=== PATIENT | male | born 1960 | race African-American/Black ===

== ENCOUNTER 2017-01-30 04:34 | Emergency (ER) | payer OTHER ==
[~2017-01-30] VITALS: Ht 190.5 cm; Wt 136.4 kg
[~2017-01-30 04:34] MED LIST: ACYC400T PO; ALPR2TAB7 PO; BENZ100C68 PO; GABA-533 PO; HYDR-4065 PO; HYDR25TA PO; IPRA4AER IH; ISOS60TA4 PO; LEVO500T89 PO; LORA10TA7 PO; METO25TA6 PO; OLOP5DRO15 OP; OMEP20CA4 PO; POTA595T PO; PRED50TA2 PO; PYRI500T3 PO; VALS320T2 PO
[2017-01-30] MEDS ORDERED: ISOS120T10 PO (04:52)
[2017-01-30] MEDS ORDERED: BENA20 PO (04:52)
[2017-01-30] MEDS ORDERED: LORA10TA7 PO (04:52)
[2017-01-30] MEDS ORDERED: HYDR25TA PO (04:52)
[2017-01-30] MEDS ORDERED: AMLO-511 PO (04:52)
[2017-01-30] MEDS ORDERED: MECL-111 PO (04:52)
[2017-01-30] MEDS ORDERED: BACL10TA PO (04:52)
[2017-01-30 06:08] VITALS: BP 150/100
[2017-01-31] MEDS ORDERED: SODI44SP18 NASAL (01:19)
[2017-01-31] MEDS ORDERED: DOXY100C PO (01:19)
== END 2017-01-30 06:46 | disposition home or self-care (01) ==
LOC: EMS 04:35
DX: J32.9 Chronic sinusitis, unspecified (principal); I10 Essential (primary) hypertension; Z88.8 Allergy status to other drugs, medicaments and biological substances
CPT/HCPCS: 99283

== ENCOUNTER 2017-01-31 01:00 | Emergency (ER) | payer OTHER ==
[~2017-01-31] VITALS: Ht 190.5 cm; Wt 150.0 kg
[~2017-01-31 01:00] MED LIST changes: +AMLO-511 PO; +BACL10TA PO; +BENA20 PO; -BENZ100C68 PO; +ISOS120T10 PO; -ISOS60TA4 PO; -LEVO500T89 PO; +MECL-111 PO; -METO25TA6 PO; -OLOP5DRO15 OP; -OMEP20CA4 PO; -POTA595T PO; -PRED50TA2 PO; -PYRI500T3 PO; -VALS320T2 PO
[2017-01-31] MEDS ORDERED: DOXY100C PO (01:19)
[2017-01-31] MEDS ORDERED: SODI44SP18 NASAL (01:19)
[2017-01-31 03:43] VITALS: BP 150/85
== END 2017-01-31 03:43 | disposition home or self-care (01) ==
LOC: EMS 01:01
DX: H65.91 Unspecified nonsuppurative otitis media, right ear (principal); H93.11 Tinnitus, right ear; R42 Dizziness and giddiness; I10 Essential (primary) hypertension; Z88.8 Allergy status to other drugs, medicaments and biological substances
CPT/HCPCS: 99283

== ENCOUNTER 2017-08-08 12:16 | Inpatient (IN) | payer OTHER ==
[~2017-08-08] VITALS: Ht 190.5 cm; Wt 166.0 kg
[~2017-08-08 12:16] MED LIST changes: +DOXY100C PO; +SODI44SP18 NASAL
[2017-08-08] MEDS ORDERED: ONDANSETRON HCL 4 MG/2 ML VIAL IVP ONE (13:00)
[2017-08-08] MEDS ORDERED: MORPHINE SULFATE 4 MG/ML SYRINGE IVP ONE (13:00)
[2017-08-08] MEDS ORDERED: SODIUM CHLORIDE 0.9% 1,000 ML IV ONE (13:00)
[2017-08-08] MEDS ORDERED: PB/HYOSCY/ATR/SCOP/LIDO/MAALOX 55 ML BOTTLE PO ONE (13:00)
[2017-08-08 13:08] LABS: BASOPHILS % (AUTO) 0.7 % (0.0-2.0); EOSINOPHILS % (AUTO) 0.3 % (1.0-6.0); HEMATOCRIT 42.4 % (41-53); HEMOGLOBIN 14.5 g/dL (13.5-17.5); LYMPHOCYTES # (AUTO) 1.2 K/uL (1.0-4.8); MEAN CORPUSCULAR HEMOGLOBIN 29.7 pg (26.0-34.0); MEAN CORPUSCULAR HGB CONC 34.3 G/dL (31.0-37.0); MEAN CORPUSCULAR VOLUME 87 fL (80-100); MONOCYTES # (AUTO) 0.4 K/uL (0.1-1.0); MONOCYTES % (AUTO) 3.3 % (2.0-9.0); NEUTROPHILS # (AUTO) 11.4 K/uL (1.8-7.7); PLATELET COUNT (AUTO) 229 K/uL (150-450); RED BLOOD CELL COUNT(AUTO) 4.88 MIL/uL (4.50-5.90); RED CELL DISTRIBUTION WIDTH 14.9 % (11.5-14.5)
[2017-08-08 13:09] LABS: NEUTROPHILS % (AUTO) 86.7 % (40.0-70.0)
[2017-08-08 13:16] LABS: ANION GAP 8 mmol/L (8-16); CALCIUM, TOTAL 9.3 mg/dL (8.8-10.5); CARBON DIOXIDE 28 mmol/L (22-29); CHLORIDE 100 mmol/L (98-107); CREATININE 1.33 mg/dL (0.60-1.30); GLOMERULAR FILTR. RATE CALC > 60 mL/min (>60); GLUCOSE,RANDOM 103 mg/dL (70-110); POTASSIUM 3.4 mmol/L (3.5-5.1); SODIUM SERUM 136 mmol/L (136-145); UREA NITROGEN, BLOOD 15 mg/dL (7-18)
[2017-08-08 13:22] LABS: ALANINE AMINOTRANSFERASE 40 U/L (12-78); ALBUMIN 3.7 g/dL (3.4-5.0); ALKALINE PHOSPHATASE 86 U/L (46-116); ASPARTATE AMINOTRANSFERASE 27 U/L (15-37); BILIRUBIN,TOTAL 0.4 mg/dL (0.1-1.0); LIPASE 72 U/L (73-393); TOTAL PROTEIN, SERUM 7.8 g/dL (6.4-8.2)
[2017-08-08] MEDS ORDERED: BARIUM SULFATE 0.1% SUSPENSION 450 ML BOTTLE PO ONE (13:30)
[2017-08-08] MEDS ORDERED: POTASSIUM CHLORIDE 20 MEQ ER TABLET PO ONE (13:30)
[2017-08-08] MEDS ORDERED: IOVERSOL 350 MG/ML 150 ML VIAL ONE (14:10)
[2017-08-08] MEDS ORDERED: HYDROmorphone 2 MG/ML SYRINGE IVP ONE ×3 (14:15→18:45)
[2017-08-08] MEDS ORDERED: BISACODYL 10 MG RECTAL RECTAL SUPPOSITORY PR PRN (16:45)
[2017-08-08] MEDS ORDERED: ACETAMINOPHEN 325 MG TABLET PO PRN (16:45)
[2017-08-08] MEDS ORDERED: ZOLPIDEM TARTRATE 5 MG TABLET PO PRN (16:45)
[2017-08-08] MEDS ORDERED: MAGNESIUM HYDROXIDE SUSPENSION 30 ML UDCUP PO PRN (16:45)
[2017-08-08] MEDS ORDERED: ONDANSETRON HCL 4 MG/2 ML VIAL IVP PRN (16:45)
[2017-08-08] MEDS ORDERED: MECLIZINE HCL 25 MG TABLET PO PRN (16:45)
[2017-08-08] MEDS ORDERED: CloNIDine HCL 0.1 MG TABLET PO PRN (16:45)
[2017-08-08] MEDS ORDERED: LORATADINE 10 MG TABLET PO PRN (16:45)
[2017-08-08 20:42] VITALS: BP 157/96
[2017-08-08] MEDS: DOCUSATE SODIUM 100 MG CAPSULE PO SCH (21:49)
[2017-08-08] MEDS: HydrALAZINE HCL 25 MG TABLET PO SCH (21:49)
[2017-08-08] MEDS: ACYCLOVIR 200 MG CAPSULE PO SCH (21:49)
[2017-08-08] MEDS: PIPERACILLIN/TAZO 3.375 GM/D5W 50 ML IV SCH (21:50)
[2017-08-08] MEDS ORDERED: SODIUM CHLORIDE 0.9% 500 ML IV ONE (22:17)
[2017-08-08] MEDS: HYDROCODONE/ACETAMINOPHEN 5-325 MG TABLET PO PRN (22:18)
[2017-08-08] MEDS: HEPARIN SODIUM,PORCINE 5,000 UNITS/ML VIAL SQ SCH (23:19)
[2017-08-09] VITALS (7 sets, daily range): BP systolic 140–189; BP diastolic 80–101
[2017-08-09] MEDS ORDERED: VIT D PO (03:25)
[2017-08-09] MEDS ORDERED: [UNRECOGNIZED DRUG - CODE] OU (03:25)
[2017-08-09] MEDS: PIPERACILLIN/TAZO 3.375 GM/D5W 50 ML IV SCH ×4 (04:13→20:36)
[2017-08-09] MEDS: HYDROCODONE/ACETAMINOPHEN 5-325 MG TABLET PO PRN ×4 (04:13→20:37)
[2017-08-09 06:18] LABS: BASOPHILS % (AUTO) 0.2 % (0.0-2.0); EOSINOPHILS % (AUTO) 1.2 % (1.0-6.0); HEMATOCRIT 41.1 % (41-53); LYMPHOCYTES # (AUTO) 1.7 K/uL (1.0-4.8); LYMPHOCYTES % (AUTO) 15.6 % (22.0-44.0); MEAN CORPUSCULAR HEMOGLOBIN 30.1 pg (26.0-34.0); MEAN CORPUSCULAR HGB CONC 34.1 G/dL (31.0-37.0); MEAN CORPUSCULAR VOLUME 88 fL (80-100); MONOCYTES # (AUTO) 0.9 K/uL (0.1-1.0); MONOCYTES % (AUTO) 8.1 % (2.0-9.0); NEUTROPHILS # (AUTO) 8.4 K/uL (1.8-7.7); NEUTROPHILS % (AUTO) 74.9 % (40.0-70.0); PLATELET COUNT (AUTO) 224 K/uL (150-450); RED BLOOD CELL COUNT(AUTO) 4.65 MIL/uL (4.50-5.90); RED CELL DISTRIBUTION WIDTH 15.1 % (11.5-14.5)
[2017-08-09 06:43] LABS: ANION GAP 4 mmol/L (8-16); CALCIUM, TOTAL 8.4 mg/dL (8.8-10.5); CARBON DIOXIDE 32 mmol/L (22-29); CHLORIDE 102 mmol/L (98-107); CREATININE 1.34 mg/dL (0.60-1.30); GLOMERULAR FILTR. RATE CALC > 60 mL/min (>60); GLUCOSE,RANDOM 83 mg/dL (70-110); POTASSIUM 3.5 mmol/L (3.5-5.1); SODIUM SERUM 138 mmol/L (136-145); UREA NITROGEN, BLOOD 13 mg/dL (7-18)
[2017-08-09] MEDS: MORPHINE SULFATE 4 MG/ML SYRINGE IVP PRN ×4 (07:50→23:56)
[2017-08-09] MEDS: HEPARIN SODIUM,PORCINE 5,000 UNITS/ML VIAL SQ SCH ×3 (08:12→23:55)
[2017-08-09] MEDS: PANTOPRAZOLE SODIUM 40 MG DR TABLET PO SCH (08:13)
[2017-08-09] MEDS: ISOSORBIDE MONONITRATE 60 MG ER TABLET PO SCH (08:13)
[2017-08-09] MEDS: AmLODIPine BESYLATE 10 MG TABLET PO SCH (08:13)
[2017-08-09] MEDS: ACYCLOVIR 200 MG CAPSULE PO SCH ×2 (08:14→20:38)
[2017-08-09] MEDS: HydrALAZINE HCL 25 MG TABLET PO SCH (08:14)
[2017-08-09] MEDS: DOCUSATE SODIUM 100 MG CAPSULE PO SCH ×2 (08:14→20:36)
[2017-08-09] MEDS ORDERED: HYPROMELLOSE 0.5% 15 ML OPHTHALMIC SOLUTION OU PRN (11:30)
[2017-08-09] MEDS ORDERED: MAG HYDROX/AL HYDROX/SIMETH 30 ML SUSP UDCUP PO PRN (11:30)
[2017-08-09] MEDS: SODIUM CHLORIDE 0.9% 1,000 ML IV SCH (17:06)
[2017-08-09] MEDS: METOPROLOL SUCCINATE 25 MG ER TABLET PO SCH (20:37)
[2017-08-09] MEDS ORDERED: METOPROLOL TARTRATE 25 MG TABLET PO SCH (21:00)
[2017-08-10] VITALS (7 sets, daily range): BP systolic 136–164; BP diastolic 74–91
[2017-08-10] MEDS: PIPERACILLIN/TAZO 3.375 GM/D5W 50 ML IV SCH ×4 (03:20→20:13)
[2017-08-10] MEDS: HYDROCODONE/ACETAMINOPHEN 5-325 MG TABLET PO PRN ×3 (03:21→17:28)
[2017-08-10] MEDS: SODIUM CHLORIDE 0.9% 1,000 ML IV SCH ×2 (06:12→20:14)
[2017-08-10 08:14] LABS: BASOPHILS % (AUTO) 0.9 % (0.0-2.0); EOSINOPHILS % (AUTO) 1.7 % (1.0-6.0); HEMATOCRIT 39.1 % (41-53); HEMOGLOBIN 13.6 g/dL (13.5-17.5); LYMPHOCYTES # (AUTO) 1.8 K/uL (1.0-4.8); LYMPHOCYTES % (AUTO) 18.2 % (22.0-44.0); MEAN CORPUSCULAR HEMOGLOBIN 30.3 pg (26.0-34.0); MEAN CORPUSCULAR HGB CONC 34.8 G/dL (31.0-37.0); MEAN CORPUSCULAR VOLUME 87 fL (80-100); MONOCYTES # (AUTO) 0.8 K/uL (0.1-1.0); MONOCYTES % (AUTO) 8.1 % (2.0-9.0); NEUTROPHILS # (AUTO) 6.9 K/uL (1.8-7.7); NEUTROPHILS % (AUTO) 71.1 % (40.0-70.0); PLATELET COUNT (AUTO) 210 K/uL (150-450); RED BLOOD CELL COUNT(AUTO) 4.48 MIL/uL (4.50-5.90); RED CELL DISTRIBUTION WIDTH 14.8 % (11.5-14.5)
[2017-08-10] MEDS: HEPARIN SODIUM,PORCINE 5,000 UNITS/ML VIAL SQ SCH ×3 (08:22→23:17)
[2017-08-10] MEDS: AmLODIPine BESYLATE 10 MG TABLET PO SCH (08:23)
[2017-08-10] MEDS: ISOSORBIDE MONONITRATE 60 MG ER TABLET PO SCH (08:23)
[2017-08-10] MEDS: DOCUSATE SODIUM 100 MG CAPSULE PO SCH ×2 (08:23→20:15)
[2017-08-10] MEDS: METOPROLOL SUCCINATE 25 MG ER TABLET PO SCH ×2 (08:24→20:17)
[2017-08-10] MEDS: MORPHINE SULFATE 4 MG/ML SYRINGE IVP PRN ×3 (08:24→20:26)
[2017-08-10] MEDS: ACYCLOVIR 200 MG CAPSULE PO SCH ×2 (08:24→20:15)
[2017-08-10] MEDS: PANTOPRAZOLE SODIUM 40 MG DR TABLET PO SCH (08:29)
[2017-08-10 08:47] LABS: ANION GAP 8 mmol/L (8-16); CALCIUM, TOTAL 8.3 mg/dL (8.8-10.5); CARBON DIOXIDE 28 mmol/L (22-29); CHLORIDE 105 mmol/L (98-107); CREATININE 1.17 mg/dL (0.60-1.30); GLOMERULAR FILTR. RATE CALC > 60 mL/min (>60); GLUCOSE,RANDOM 78 mg/dL (70-110); POTASSIUM 3.5 mmol/L (3.5-5.1); SODIUM SERUM 141 mmol/L (136-145); UREA NITROGEN, BLOOD 9 mg/dL (7-18)
[2017-08-10] MEDS: HydrALAZINE HCL 20 MG/ML VIAL IVP PRN (11:31)
[2017-08-10] MEDS: ALPRAZolam 1 MG TABLET PO PRN (22:21)
[2017-08-11] MEDS: PIPERACILLIN/TAZO 3.375 GM/D5W 50 ML IV SCH ×4 (02:50→19:51)
[2017-08-11 04:32] VITALS: BP 135/87
[2017-08-11] MEDS: SODIUM CHLORIDE 0.9% 1,000 ML IV SCH ×3 (05:00→19:51)
[2017-08-11] MEDS: MORPHINE SULFATE 4 MG/ML SYRINGE IVP PRN ×3 (05:13→22:39)
[2017-08-11 06:50] LABS: BASOPHILS % (AUTO) 0.3 % (0.0-2.0); EOSINOPHILS % (AUTO) 3.2 % (1.0-6.0); HEMATOCRIT 40.4 % (41-53); HEMOGLOBIN 13.8 g/dL (13.5-17.5); LYMPHOCYTES # (AUTO) 1.7 K/uL (1.0-4.8); LYMPHOCYTES % (AUTO) 20.3 % (22.0-44.0); MEAN CORPUSCULAR HEMOGLOBIN 30.5 pg (26.0-34.0); MEAN CORPUSCULAR HGB CONC 34.2 G/dL (31.0-37.0); MEAN CORPUSCULAR VOLUME 89 fL (80-100); MONOCYTES # (AUTO) 0.7 K/uL (0.1-1.0); MONOCYTES % (AUTO) 7.9 % (2.0-9.0); NEUTROPHILS # (AUTO) 5.7 K/uL (1.8-7.7); NEUTROPHILS % (AUTO) 68.3 % (40.0-70.0); PLATELET COUNT (AUTO) 218 K/uL (150-450); RED BLOOD CELL COUNT(AUTO) 4.53 MIL/uL (4.50-5.90); RED CELL DISTRIBUTION WIDTH 15.2 % (11.5-14.5)
[2017-08-11 07:19] LABS: ANION GAP 6 mmol/L (8-16); CALCIUM, TOTAL 8.8 mg/dL (8.8-10.5); CARBON DIOXIDE 31 mmol/L (22-29); CHLORIDE 103 mmol/L (98-107); GLOMERULAR FILTR. RATE CALC > 60 mL/min (>60); GLUCOSE,RANDOM 80 mg/dL (70-110); POTASSIUM 3.7 mmol/L (3.5-5.1); SODIUM SERUM 140 mmol/L (136-145); UREA NITROGEN, BLOOD 6 mg/dL (7-18)
[2017-08-11 07:40] VITALS: BP 194/90
[2017-08-11] MEDS: PANTOPRAZOLE SODIUM 40 MG DR TABLET PO SCH (08:34)
[2017-08-11] MEDS: ACYCLOVIR 200 MG CAPSULE PO SCH ×2 (08:34→19:51)
[2017-08-11] MEDS: DOCUSATE SODIUM 100 MG CAPSULE PO SCH ×2 (08:34→19:51)
[2017-08-11] MEDS: ISOSORBIDE MONONITRATE 60 MG ER TABLET PO SCH (08:34)
[2017-08-11] MEDS: HYDROCODONE/ACETAMINOPHEN 5-325 MG TABLET PO PRN ×2 (08:35→17:51)
[2017-08-11] MEDS: AmLODIPine BESYLATE 10 MG TABLET PO SCH (08:40)
[2017-08-11] MEDS: METOPROLOL SUCCINATE 25 MG ER TABLET PO SCH ×2 (08:40→19:51)
[2017-08-11 08:55] VITALS: BP 162/96
[2017-08-11] MEDS: HEPARIN SODIUM,PORCINE 5,000 UNITS/ML VIAL SQ SCH ×3 (09:38→23:47)
[2017-08-11 16:45] VITALS: BP 160/92
[2017-08-11 19:32] VITALS: BP 156/93
[2017-08-11 23:44] VITALS: BP 147/75
[2017-08-11] MEDS: ALPRAZolam 1 MG TABLET PO PRN (23:49)
[2017-08-12 04:19] VITALS: BP 142/89
[2017-08-12] MEDS: HYDROCODONE/ACETAMINOPHEN 5-325 MG TABLET PO PRN ×3 (04:19→20:43)
[2017-08-12] MEDS: PIPERACILLIN/TAZO 3.375 GM/D5W 50 ML IV SCH ×4 (04:21→20:44)
[2017-08-12 07:45] VITALS: BP 175/82
[2017-08-12] MEDS: AmLODIPine BESYLATE 10 MG TABLET PO SCH (08:36)
[2017-08-12] MEDS: PANTOPRAZOLE SODIUM 40 MG DR TABLET PO SCH (08:36)
[2017-08-12] MEDS: DOCUSATE SODIUM 100 MG CAPSULE PO SCH ×2 (08:36→20:44)
[2017-08-12] MEDS: HEPARIN SODIUM,PORCINE 5,000 UNITS/ML VIAL SQ SCH ×3 (08:37→23:47)
[2017-08-12] MEDS: METOPROLOL SUCCINATE 25 MG ER TABLET PO SCH ×2 (08:42→20:46)
[2017-08-12] MEDS: ACYCLOVIR 200 MG CAPSULE PO SCH ×2 (08:42→20:44)
[2017-08-12] MEDS: ISOSORBIDE MONONITRATE 60 MG ER TABLET PO SCH (08:42)
[2017-08-12] MEDS ORDERED: SODIUM CHLORIDE 0.9% 500 ML IV ONE (08:49)
[2017-08-12 09:33] VITALS: BP 168/89
[2017-08-12] MEDS: HydrALAZINE HCL 20 MG/ML VIAL IVP PRN (09:36)
[2017-08-12 10:41] VITALS: BP 133/97
[2017-08-12] MEDS ORDERED: IBUPROFEN 800 MG TABLET PO PRN (11:45)
[2017-08-12] MEDS ORDERED: IBUPROFEN 600 MG TABLET PO PRN (12:00)
[2017-08-12 16:19] VITALS: BP 125/66
[2017-08-12 19:59] VITALS: BP 144/73
[2017-08-13 00:22] VITALS: BP 143/76
[2017-08-13] MEDS: PIPERACILLIN/TAZO 3.375 GM/D5W 50 ML IV SCH ×2 (03:01→08:47)
[2017-08-13] MEDS: MORPHINE SULFATE 4 MG/ML SYRINGE IVP PRN (04:12)
[2017-08-13 05:12] VITALS: BP 137/88
[2017-08-13 07:40] VITALS: BP 155/91
[2017-08-13] MEDS: ISOSORBIDE MONONITRATE 60 MG ER TABLET PO SCH (08:43)
[2017-08-13] MEDS: HEPARIN SODIUM,PORCINE 5,000 UNITS/ML VIAL SQ SCH (08:43)
[2017-08-13] MEDS: ACYCLOVIR 200 MG CAPSULE PO SCH (08:44)
[2017-08-13] MEDS: AmLODIPine BESYLATE 10 MG TABLET PO SCH (08:44)
[2017-08-13] MEDS: DOCUSATE SODIUM 100 MG CAPSULE PO SCH (08:45)
[2017-08-13] MEDS: METOPROLOL SUCCINATE 25 MG ER TABLET PO SCH (08:46)
[2017-08-13] MEDS: PANTOPRAZOLE SODIUM 40 MG DR TABLET PO SCH (08:46)
[2017-08-13] MEDS: HYDROCODONE/ACETAMINOPHEN 5-325 MG TABLET PO PRN (08:46)
[2017-08-13 11:50] VITALS: BP 161/83
== END 2017-08-13 13:30 | disposition home or self-care (01) | DRG 244 ==
LOC: EMS 12:16 → 4E 18:29 → 6N 08-12 18:08
PROVIDERS: ADMIT Internal Medicine; ATTEND Internal Medicine
DX: K57.12 Diverticulitis of small intestine without perforation or abscess without bleeding (principal); Z68.43 Body mass index [BMI] 50.0-59.9, adult; I10 Essential (primary) hypertension; R19.07 Generalized intra-abdominal and pelvic swelling, mass and lump; A60.00 Herpesviral infection of urogenital system, unspecified; E66.01 Morbid (severe) obesity due to excess calories; F41.9 Anxiety disorder, unspecified; G89.29 Other chronic pain; Z82.5 Family history of asthma and other chronic lower respiratory diseases; Z82.49 Family history of ischemic heart disease and other diseases of the circulatory system; Z88.8 Allergy status to other drugs, medicaments and biological substances; Z79.899 Other long term (current) drug therapy
CPT/HCPCS: 74177; 74250; 93005; 96374; 96375; 96376; 99285; J0360; J1170; J1644; J2270; J2405; J2543; J7030; J7040

== ENCOUNTER 2018-04-21 15:23 | Emergency (ER) | payer OTHER ==
[~2018-04-21] VITALS: Ht 190.5 cm; Wt 156.8 kg
[~2018-04-21 15:23] MED LIST changes: -BACL10TA PO; -DOXY100C PO; -IPRA4AER IH; -ISOS120T10 PO; +ISOS120T14 PO; -SODI44SP18 NASAL; +VIT D PO; +[UNRECOGNIZED DRUG - CODE] OU
[2018-04-21] MEDS ORDERED: METO50 PO (16:44)
[2018-04-21 16:53] LABS: EOSINOPHILS % (AUTO) 2.4 % (1.0-6.0); HEMATOCRIT 45.3 % (41-53); HEMOGLOBIN 15.1 g/dL (13.5-17.5); LYMPHOCYTES # (AUTO) 1.6 K/uL (1.0-4.8); LYMPHOCYTES % (AUTO) 23.6 % (22.0-44.0); MEAN CORPUSCULAR HEMOGLOBIN 29.4 pg (26.0-34.0); MEAN CORPUSCULAR HGB CONC 33.4 G/dL (31.0-37.0); MEAN CORPUSCULAR VOLUME 88 fL (80-100); MONOCYTES # (AUTO) 0.5 K/uL (0.1-1.0); MONOCYTES % (AUTO) 7.7 % (2.0-9.0); NEUTROPHILS # (AUTO) 4.5 K/uL (1.8-7.7); NEUTROPHILS % (AUTO) 65.3 % (40.0-70.0); PLATELET COUNT (AUTO) 244 K/uL (150-450); RED BLOOD CELL COUNT(AUTO) 5.14 MIL/uL (4.50-5.90); RED CELL DISTRIBUTION WIDTH 14.2 % (11.5-14.5)
[2018-04-21 17:13] LABS: ANION GAP 12 mmol/L (8-16); CALCIUM, TOTAL 9.4 mg/dL (8.8-10.5); CARBON DIOXIDE 28 mmol/L (22-29); CHLORIDE 102 mmol/L (98-107); CREATININE 0.95 mg/dL (0.60-1.30); GLOMERULAR FILTR. RATE CALC > 60 mL/min (>60); GLUCOSE,RANDOM 88 mg/dL (70-110); POTASSIUM 3.2 mmol/L (3.5-5.1); SODIUM SERUM 142 mmol/L (136-145); UREA NITROGEN, BLOOD 15 mg/dL (7-18)
[2018-04-21 17:19] LABS: ALANINE AMINOTRANSFERASE 39 U/L (12-78); ALBUMIN 3.8 g/dL (3.4-5.0); ALKALINE PHOSPHATASE 85 U/L (46-116); ASPARTATE AMINOTRANSFERASE 31 U/L (15-37); BILIRUBIN,TOTAL 0.5 mg/dL (0.1-1.0); TOTAL PROTEIN, SERUM 7.7 g/dL (6.4-8.2)
[2018-04-21 18:22] LABS: AMPHET/METH SCREEN,URINE NEGATIVE (NEGATIVE); BARBITURATE SCREEN, URINE NEGATIVE (NEGATIVE); BENZODIAZEPINES SCREEN,URINE POSITIVE (NEGATIVE); CANNABINOID SCREEN,URINE NEGATIVE (NEGATIVE); COCAINE SCREEN,URINE NEGATIVE (NEGATIVE); METHADONE SCREEN, URINE NEGATIVE (NEGATIVE); OPIATE SCREEN,URINE POSITIVE (NEGATIVE)
[2018-04-21 18:24] LABS: PHENCYCLIDINE SCREEN,URINE POSITIVE (NEGATIVE)
[2018-04-21 19:06] VITALS: BP 165/95
== END 2018-04-21 19:08 | disposition home or self-care (01) ==
LOC: EMS 15:23
DX: F32.9 Major depressive disorder, single episode, unspecified (principal); F13.10 Sedative, hypnotic or anxiolytic abuse, uncomplicated; M54.9 Dorsalgia, unspecified; G89.29 Other chronic pain; F41.9 Anxiety disorder, unspecified; I10 Essential (primary) hypertension; Z88.8 Allergy status to other drugs, medicaments and biological substances
CPT/HCPCS: 36415; 80053; 80307; 85025; 99285; G0480

== ENCOUNTER 2019-01-29 01:34 | Emergency (ER) | payer OTHER ==
[~2019-01-29] VITALS: Ht 190.5 cm; Wt 150.0 kg
[~2019-01-29 01:34] MED LIST changes: -AMLO-511 PO; +AMLO5TAB9 PO; -BENA20 PO; +BENA20TA11 PO; +METO50 PO
[2019-01-29 02:00] LABS: BASOPHILS % (AUTO) 0.7 % (0.0-2.0); EOSINOPHILS % (AUTO) 4.6 % (1.0-6.0); HEMATOCRIT 45.6 % (41-53); HEMOGLOBIN 15.1 g/dL (13.5-17.5); LYMPHOCYTES # (AUTO) 1.8 K/uL (1.0-4.8); LYMPHOCYTES % (AUTO) 22.5 % (22.0-44.0); MEAN CORPUSCULAR HEMOGLOBIN 29.5 pg (26.0-34.0); MEAN CORPUSCULAR HGB CONC 33.2 G/dL (31.0-37.0); MEAN CORPUSCULAR VOLUME 89 fL (80-100); MONOCYTES # (AUTO) 0.5 K/uL (0.1-1.0); MONOCYTES % (AUTO) 6.6 % (2.0-9.0); NEUTROPHILS # (AUTO) 5.3 K/uL (1.8-7.7); NEUTROPHILS % (AUTO) 65.6 % (40.0-70.0); PLATELET COUNT (AUTO) 242 K/uL (150-450); RED BLOOD CELL COUNT(AUTO) 5.13 MIL/uL (4.50-5.90); RED CELL DISTRIBUTION WIDTH 14.6 % (11.5-14.5)
[2019-01-29 02:08] LABS: ANION GAP 2 mmol/L (8-16); CALCIUM, TOTAL 8.9 mg/dL (8.8-10.5); CARBON DIOXIDE 33 mmol/L (22-29); CHLORIDE 102 mmol/L (98-107); CREATININE 1.32 mg/dL (0.60-1.30); GLOMERULAR FILTR. RATE CALC > 60 mL/min (>60); GLUCOSE,RANDOM 107 mg/dL (70-110); POTASSIUM 3.7 mmol/L (3.5-5.1); SODIUM SERUM 137 mmol/L (136-145)
[2019-01-29 02:14] LABS: ALANINE AMINOTRANSFERASE 30 U/L (12-78); ALBUMIN 3.7 g/dL (3.4-5.0); ALKALINE PHOSPHATASE 70 U/L (46-116); ASPARTATE AMINOTRANSFERASE 24 U/L (15-37); BILIRUBIN,TOTAL 0.3 mg/dL (0.1-1.0); TOTAL PROTEIN, SERUM 7.6 g/dL (6.4-8.2); UREA NITROGEN, BLOOD 17 mg/dL (7-18)
[2019-01-29 02:54] LABS: THYROID STIMULATING HORMONE 3.14 uIU/mL (0.36-3.74)
[2019-01-29 03:05] VITALS: BP 130/76
== END 2019-01-29 03:21 | disposition home or self-care (01) ==
LOC: EMS 01:35
DX: R00.2 Palpitations (principal); I10 Essential (primary) hypertension; G89.29 Other chronic pain; G47.00 Insomnia, unspecified; F41.9 Anxiety disorder, unspecified; Z79.899 Other long term (current) drug therapy; Z88.8 Allergy status to other drugs, medicaments and biological substances
CPT/HCPCS: 84443; 93005

== ENCOUNTER 2019-01-31 01:04 | Emergency (ER) | payer OTHER ==
[~2019-01-31] VITALS: Ht 190.5 cm; Wt 153.6 kg
[~2019-01-31 01:04] MED LIST changes: -HYDR-4065 PO; -MECL-111 PO; -VIT D PO; -[UNRECOGNIZED DRUG - CODE] OU
[2019-01-31] MEDS ORDERED: HYDR25TA PO (01:27)
[2019-01-31] MEDS ORDERED: PROZ10 PO (01:27)
[2019-01-31] MEDS ORDERED: HYDR-4065 PO (01:27)
[2019-01-31] MEDS ORDERED: LORA10TA7 PO (01:27)
[2019-01-31] MEDS ORDERED: BENA10TA12 PO (01:27)
[2019-01-31 05:31] VITALS: BP 190/96
== END 2019-01-31 06:59 | disposition home or self-care (01) ==
LOC: EMS 01:04
DX: F41.9 Anxiety disorder, unspecified (principal); G47.00 Insomnia, unspecified; I10 Essential (primary) hypertension; G89.29 Other chronic pain; Z98.890 Other specified postprocedural states; Z79.899 Other long term (current) drug therapy; Z88.6 Allergy status to analgesic agent

== ENCOUNTER 2020-07-15 03:58 | Emergency (ER) | payer MEDICAID, OTHER ==
[~2020-07-15] VITALS: Ht 190.5 cm; Wt 157.3 kg
[~2020-07-15 03:58] MED LIST changes: -ACYC400T PO; -ALPR2TAB7 PO; -AMLO5TAB9 PO; +BENA10TA77 PO; -BENA20TA11 PO; +FLUO10CA24 PO; +GABA-1201 PO; -GABA-533 PO; -HYDR25TA PO; -ISOS120T14 PO; -LORA10TA7 PO
[2020-07-15] MEDS ORDERED: AMLO-257 PO (04:15)
[2020-07-15] MEDS ORDERED: ATOR40TA28 PO (04:15)
[2020-07-15] MEDS ORDERED: MIRT-89 PO (04:15)
[2020-07-15] MEDS ORDERED: MELO-107 PO (04:15)
[2020-07-15] MEDS ORDERED: METH-661 PO (04:15)
[2020-07-15 07:26] LABS: BASOPHILS % (AUTO) 0.4 % (0.0-2.0); EOSINOPHILS % (AUTO) 1.2 % (1.0-6.0); HEMATOCRIT 43.2 % (41-53); HEMOGLOBIN 14.2 g/dL (13.5-17.5); LYMPHOCYTES # (AUTO) 1.7 K/uL (1.0-4.8); LYMPHOCYTES % (AUTO) 17.2 % (22.0-44.0); MEAN CORPUSCULAR HEMOGLOBIN 29.7 pg (26.0-34.0); MEAN CORPUSCULAR HGB CONC 32.8 G/dL (31.0-37.0); MEAN CORPUSCULAR VOLUME 91 fL (80-100); MONOCYTES # (AUTO) 0.6 K/uL (0.1-1.0); MONOCYTES % (AUTO) 5.8 % (2.0-9.0); NEUTROPHILS # (AUTO) 7.6 K/uL (1.8-7.7); NEUTROPHILS % (AUTO) 75.4 % (40.0-70.0); PLATELET COUNT (AUTO) 220 K/uL (150-450); RED BLOOD CELL COUNT(AUTO) 4.76 MIL/uL (4.50-5.90); RED CELL DISTRIBUTION WIDTH 14.4 % (11.5-14.5)
[2020-07-15 07:32] LABS: ANION GAP 6 mmol/L (8-16); CALCIUM, TOTAL 9.1 mg/dL (8.8-10.5); CARBON DIOXIDE 30 mmol/L (22-29); CHLORIDE 106 mmol/L (98-107); CREATININE 1.13 mg/dL (0.60-1.30); GLOMERULAR FILTR. RATE CALC > 60 mL/min (>60); GLUCOSE,RANDOM 108 mg/dL (70-110); POTASSIUM 4.1 mmol/L (3.5-5.1); SODIUM SERUM 142 mmol/L (136-145); UREA NITROGEN, BLOOD 15 mg/dL (7-18)
[2020-07-15 07:40] LABS: ALANINE AMINOTRANSFERASE 45 U/L (12-78); ALBUMIN 4.1 g/dL (3.4-5.0); ALKALINE PHOSPHATASE 110 U/L (46-116); ASPARTATE AMINOTRANSFERASE 33 U/L (15-37); BILIRUBIN,TOTAL 0.5 mg/dL (0.1-1.0); TOTAL PROTEIN, SERUM 7.8 g/dL (6.4-8.2)
[2020-07-15 08:10] VITALS: BP 156/97
== END 2020-07-15 08:12 | disposition home or self-care (01) ==
LOC: EMS 03:59
DX: R60.0 Localized edema (principal); G47.00 Insomnia, unspecified; I10 Essential (primary) hypertension; F41.9 Anxiety disorder, unspecified; E78.00 Pure hypercholesterolemia, unspecified; G89.29 Other chronic pain; Z88.6 Allergy status to analgesic agent; Z91.018 Allergy to other foods
CPT/HCPCS: 36415; 80053; 84484; 85025; 93005; 99284; G0480

== ENCOUNTER 2022-09-22 21:52 | Emergency (ER) | payer OTHER ==
[~2022-09-22] VITALS: Ht 190.5 cm; Wt 136.0 kg
[~2022-09-22 21:52] MED LIST changes: +AMLO-257 PO; +ATOR40TA28 PO; +BENA-16 PO; -BENA10TA77 PO; +MELO-381 PO; +METH-661 PO; +MIRT-89 PO
[2022-09-22 21:58] VITALS: TEMP 98.1
[2022-09-22] MEDS ORDERED: LORazepam 1 MG TABLET PO ONE (23:00)
[2022-09-22 23:46] LABS: APPEARANCE,URINE CLEAR (CLEAR); BILIRUBIN,URINE NEGATIVE (NEGATIVE); GLUCOSE, URINE (UA) NEGATIVE (NEGATIVE); KETONES,URINE NEGATIVE (NEGATIVE); LEUKOCYTE ESTERASE ,URINE NEGATIVE (NEGATIVE); NITRATE,URINE NEGATIVE (NEGATIVE); OCCULT BLOOD,URINE NEGATIVE (NEGATIVE); PH,URINE 6.5 (5.0-8.0); PROTEIN,URINE NEGATIVE (NEGATIVE); SPECIFIC GRAVITIY, URINE 1.011 (1.003-1.030); UROBILINOGEN,URINE <=1.0 mg/dL (<=1.0)
[2022-09-23 00:06] LABS: BASOPHILS % (AUTO) 0.4 % (0.0-2.0); EOSINOPHILS % (AUTO) 3.6 % (1.0-6.0); HEMATOCRIT 45.8 % (41-53); HEMOGLOBIN 15.4 g/dL (13.5-17.5); LYMPHOCYTES # (AUTO) 2.2 K/uL (1.0-4.8); MEAN CORPUSCULAR HEMOGLOBIN 30.4 pg (26.0-34.0); MEAN CORPUSCULAR HGB CONC 33.5 G/dL (31.0-37.0); MEAN CORPUSCULAR VOLUME 91 fL (80-100); MONOCYTES # (AUTO) 0.5 K/uL (0.1-1.0); NEUTROPHILS # (AUTO) 5.3 K/uL (1.8-7.7); PLATELET COUNT (AUTO) 186 K/uL (150-450); RED BLOOD CELL COUNT(AUTO) 5.05 MIL/uL (4.50-5.90); RED CELL DISTRIBUTION WIDTH 14.5 % (11.5-14.5)
[2022-09-23 00:09] LABS: ANION GAP 9 mmol/L (8-16); CALCIUM, TOTAL 9.3 mg/dL (8.8-10.5); CARBON DIOXIDE 29 mmol/L (22-29); CHLORIDE 101 mmol/L (98-107); CREATININE 1.13 mg/dL (0.60-1.30); GLOMERULAR FILTR. RATE CALC > 60 mL/min (>60); GLUCOSE,RANDOM 95 mg/dL (70-110); POTASSIUM 3.4 mmol/L (3.5-5.1); SODIUM SERUM 139 mmol/L (136-145)
[2022-09-23 00:15] LABS: ALANINE AMINOTRANSFERASE 24 U/L (12-78); ALBUMIN 3.6 g/dL (3.4-5.0); ALKALINE PHOSPHATASE 73 U/L (46-116); ASPARTATE AMINOTRANSFERASE 22 U/L (15-37); BILIRUBIN,TOTAL 0.4 mg/dL (0.1-1.0); TOTAL PROTEIN, SERUM 7.6 g/dL (6.4-8.2)
[2022-09-23 00:16] LABS: B-TYPE NATRIURETIC PEPTIDE 12 pg/mL (0-100)
[2022-09-23 00:17] LABS: CREATINE KINASE, TOTAL ONLY 341 U/L (39-308)
[2022-09-23 00:29] LABS: INR 1.1 (0.9-1.1); PROTHROMBIN TIME 11.8 SEC (9.4-11.6)
[2022-09-23] MEDS ORDERED: LABETALOL HCL 5 MG/ML 20 ML VIAL IVP ONE (02:30)
[2022-09-23 03:00] VITALS: RESP 18
[2022-09-23 03:28] VITALS: BP 203/107; PULSE 78
[2022-09-23] MEDS ORDERED: AmLODIPine BESYLATE 10 MG TABLET PO ONE (04:15)
[2022-09-23] MEDS ORDERED: TRAZ-184 PO (04:52)
== END 2022-09-23 00:10 | disposition home or self-care (01) ==
LOC: EMS 21:53
DX: F41.9 Anxiety disorder, unspecified (principal); I10 Essential (primary) hypertension; G47.00 Insomnia, unspecified; E78.00 Pure hypercholesterolemia, unspecified; G89.29 Other chronic pain; M54.9 Dorsalgia, unspecified; Z98.890 Other specified postprocedural states; Z91.018 Allergy to other foods; Z88.8 Allergy status to other drugs, medicaments and biological substances
CPT/HCPCS: 99285; 71045; 80053; 81003; 82550; 83880; 84484; 85025; 85610; 85730; 36415; 93005; 96374; 70450; J3490

== ENCOUNTER 2022-10-20 21:15 | Emergency (ER) | payer OTHER ==
[~2022-10-20] VITALS: Ht 190.5 cm; Wt 136.4 kg
[~2022-10-20 21:15] MED LIST changes: +TRAZ-184 PO
[2022-10-20] MEDS ORDERED: LORazepam 2 MG TABLET PO ONE (22:45)
[2022-10-20] MEDS ORDERED: IBUPROFEN 600 MG TABLET PO ONE (22:45)
[2022-10-21 01:02] VITALS: BP 145/96; PULSE 79; RESP 15; TEMP 97.3
== END 2022-10-21 05:19 | disposition home or self-care (01) ==
LOC: EMS 21:16
DX: F41.9 Anxiety disorder, unspecified (principal); E78.00 Pure hypercholesterolemia, unspecified; I10 Essential (primary) hypertension; Z98.890 Other specified postprocedural states
CPT/HCPCS: 99283

== ENCOUNTER 2023-12-22 20:37 | Emergency (ER) | payer OTHER ==
[~2023-12-22] VITALS: Ht 188 cm; Wt 136.4 kg
[~2023-12-22 20:37] MED LIST changes: +MELO-107 PO; -MELO-381 PO
[2023-12-22 21:10] VITALS: BP 194/97; PULSE 91; RESP 18; TEMP 98.5; O2SAT 98
[2023-12-22] MEDS: ClonazePAM 1 MG TABLET PO ONE (21:31)
== END 2023-12-22 22:19 | disposition home or self-care (01) ==
LOC: EMS 20:37
DX: G47.00 Insomnia, unspecified (principal); F41.9 Anxiety disorder, unspecified; I10 Essential (primary) hypertension; E78.00 Pure hypercholesterolemia, unspecified; Z79.1 Long term (current) use of non-steroidal anti-inflammatories (NSAID); Z91.018 Allergy to other foods; Z79.899 Other long term (current) drug therapy
CPT/HCPCS: 99283

== ENCOUNTER 2024-08-01 00:21 | Emergency (ER) | payer OTHER ==
[~2024-08-01] VITALS: Ht 185.4 cm; Wt 145.4 kg
[~2024-08-01 00:21] MED LIST changes: -AMLO-257 PO; +AMLO-258 PO; -BENA-16 PO; -FLUO10CA24 PO; +HYDR50TA37 PO; +ISOS30TA92 PO; -MELO-107 PO; -METH-661 PO; -METO50 PO; -MIRT-89 PO; +PRED-729 PO; -TRAZ-184 PO
[2024-08-01 00:33] VITALS: TEMP 97.9
[2024-08-01 00:41] LABS: COVID AG,FIA SOURCE NASAL SWAB
[2024-08-01 01:02] LABS: INFLUENZA TYPE A NEGATIVE FOR TYPE A (NEGATIVE); INFLUENZA TYPE B NEGATIVE FOR TYPE B (NEGATIVE); SARS-COV2 (COVID) ANTIGEN,FIA Negative (Negative)
[2024-08-01 04:00] VITALS: PULSE 77; RESP 18; O2SAT 96
[2024-08-01] MEDS ORDERED: 0.9% SODIUM CHLORIDE 5 ML NEB SOLUTION NEB ONE (04:05)
[2024-08-01 04:10] LABS: BASOPHILS % (AUTO) 0.5 % (0.0-2.0); EOSINOPHILS % (AUTO) 8.4 % (1.0-6.0); HEMATOCRIT 44.4 % (41-53); HEMOGLOBIN 14.5 g/dL (13.5-17.5); LYMPHOCYTES # (AUTO) 1.6 K/uL (1.0-4.8); LYMPHOCYTES % (AUTO) 20.8 % (22.0-44.0); MEAN CORPUSCULAR HEMOGLOBIN 29.8 pg (26.0-34.0); MEAN CORPUSCULAR HGB CONC 32.7 G/dL (31.0-37.0); MEAN CORPUSCULAR VOLUME 91 fL (80-100); MONOCYTES # (AUTO) 0.7 K/uL (0.1-1.0); MONOCYTES % (AUTO) 9.2 % (2.0-9.0); NEUTROPHILS # (AUTO) 4.6 K/uL (1.8-7.7); NEUTROPHILS % (AUTO) 61.1 % (40.0-70.0); PLATELET COUNT (AUTO) 174 K/uL (150-450); RED BLOOD CELL COUNT(AUTO) 4.87 MIL/uL (4.50-5.90); RED CELL DISTRIBUTION WIDTH 14.1 % (11.5-14.5); WHITE BLOOD COUNT (AUTO) 7.5 K/uL (4.5-11.0)
[2024-08-01] MEDS: ALBUTEROL SULFATE 2.5 MG/0.5 ML NEB SOLUTION NEB ONE (04:10)
[2024-08-01] MEDS: IPRATROPIUM BROMIDE 0.5 MG/2.5 ML NEB SOLUTION NEB ONE (04:10)
[2024-08-01 04:12] VITALS: PULSE 77; RESP 18; O2SAT 96
[2024-08-01 04:17] LABS: CALCIUM, TOTAL 8.5 mg/dL (8.8-10.5); CARBON DIOXIDE 30 mmol/L (22-29); CREATININE 1.04 mg/dL (0.60-1.30); GLOMERULAR FILTR. RATE CALC > 60 mL/min (>60); GLUCOSE,RANDOM 92 mg/dL (70-110); UREA NITROGEN, BLOOD 12 mg/dL (7-18)
[2024-08-01 04:22] LABS: CREATINE KINASE, TOTAL ONLY 398 U/L (39-308)
[2024-08-01] MEDS: PredniSONE 20 MG TABLET PO ONE (04:22)
[2024-08-01] MEDS: CloNIDine HCL 0.2 MG TABLET PO ONE (04:22)
[2024-08-01 04:26] LABS: ANION GAP 4 mmol/L (8-16); CHLORIDE 104 mmol/L (98-107); POTASSIUM 3.4 mmol/L (3.5-5.1); SODIUM SERUM 138 mmol/L (136-145); TROPONIN I-HIGH SENSITIVITY 48 ng/L (<76)
[2024-08-01 04:27] LABS: B-TYPE NATRIURETIC PEPTIDE 11 pg/mL (0-100)
[2024-08-01 04:31] VITALS: PULSE 74; RESP 18; O2SAT 100
[2024-08-01 05:18] LABS: APPEARANCE,URINE HAZY (CLEAR); BILIRUBIN,URINE NEGATIVE (NEGATIVE); COLOR,URINE BROWN (YELLOW); GLUCOSE, URINE (UA) NEGATIVE (NEGATIVE); KETONES,URINE NEGATIVE (NEGATIVE); LEUKOCYTE ESTERASE ,URINE NEGATIVE (NEGATIVE); NITRATE,URINE NEGATIVE (NEGATIVE); OCCULT BLOOD,URINE NEGATIVE (NEGATIVE); PROTEIN,URINE TRACE mg/dL (NEGATIVE); SPECIFIC GRAVITIY, URINE 1.023 (1.003-1.030); UROBILINOGEN,URINE <=1.0 mg/dL (<=1.0)
[2024-08-01 06:05] VITALS: BP 168/80; PULSE 65; RESP 18; O2SAT 95
[2024-08-01] MEDS ORDERED: AMOX250C4 PO (06:27)
[2024-08-01] MEDS ORDERED: PRED-554 PO (06:27)
== END 2024-08-01 06:43 | disposition home or self-care (01) ==
LOC: EMS 00:21
DX: J32.9 Chronic sinusitis, unspecified (principal); F41.9 Anxiety disorder, unspecified; E11.9 Type 2 diabetes mellitus without complications; E78.00 Pure hypercholesterolemia, unspecified; I10 Essential (primary) hypertension; Z98.890 Other specified postprocedural states; Z91.018 Allergy to other foods; Z79.899 Other long term (current) drug therapy; Z20.822 Contact with and (suspected) exposure to COVID-19
CPT/HCPCS: 99285; 71045; 87426; 80048; 81003; 82550; 83880; 84484; 85025; 87040; 87804; 36415; 94640; 93005; J7512; J7613

== ENCOUNTER 2024-10-30 17:45 | Inpatient (IN) | payer OTHER ==
[~2024-10-30] VITALS: Ht 190.5 cm; Wt 147.0 kg
[~2024-10-30 17:45] MED LIST changes: +AMOX250C4 PO; +PRED-554 PO
[2024-10-30] MEDS: NITROGLYCERIN 2% (1 GM=INCH) OINTMENT PACKET TP ONE (18:34)
[2024-10-30 18:44] LABS: PLATELET COUNT (AUTO) 179 K/uL (150-450); RED BLOOD CELL COUNT(AUTO) 4.89 MIL/uL (4.50-5.90); RED CELL DISTRIBUTION WIDTH 14.7 % (11.5-14.5); WHITE BLOOD COUNT (AUTO) 7.8 K/uL (4.5-11.0)
[2024-10-30 18:48] LABS: CALCIUM, TOTAL 8.6 mg/dL (8.8-10.5); CREATININE 1.22 mg/dL (0.60-1.30); GLOMERULAR FILTR. RATE CALC > 60 mL/min (>60); GLUCOSE,RANDOM 87 mg/dL (70-110); SODIUM SERUM 141 mmol/L (136-145); UREA NITROGEN, BLOOD 11 mg/dL (7-18)
[2024-10-30 18:58] LABS: TROPONIN I-HIGH SENSITIVITY 44 ng/L (<76)
[2024-10-30] MEDS: ALBUTEROL SULFATE 2.5 MG/0.5 ML NEB SOLUTION NEB ONE (19:01)
[2024-10-30] MEDS: IPRATROPIUM BROMIDE 0.5 MG/2.5 ML NEB SOLUTION NEB ONE (19:01)
[2024-10-30 19:05] VITALS: PULSE 79; RESP 20; O2SAT 95
[2024-10-30 19:15] LABS: CREATINE KINASE, TOTAL ONLY 355 U/L (39-308)
[2024-10-30 19:20] VITALS: PULSE 91; RESP 20; O2SAT 98
[2024-10-30 19:24] LABS: INFLUENZA TYPE A NEGATIVE FOR TYPE A (NEGATIVE); INFLUENZA TYPE B NEGATIVE FOR TYPE B (NEGATIVE)
[2024-10-30] MEDS ORDERED: ACETAMINOPHEN 325 MG TABLET PO PRN (20:30)
[2024-10-30] MEDS ORDERED: ONDANSETRON HCL 4 MG/2 ML VIAL IVP PRN (20:30)
[2024-10-30] MEDS: DOCUSATE SODIUM 100 MG CAPSULE PO SCH (21:00)
[2024-10-30 21:25] LABS: APPEARANCE,URINE CLEAR (CLEAR); GLUCOSE, URINE (UA) NEGATIVE (NEGATIVE); LEUKOCYTE ESTERASE ,URINE NEGATIVE (NEGATIVE); NITRATE,URINE NEGATIVE (NEGATIVE); OCCULT BLOOD,URINE NEGATIVE (NEGATIVE); SPECIFIC GRAVITIY, URINE 1.008 (1.003-1.030)
[2024-10-31] VITALS (15 sets, daily range): BP systolic 138–193; BP diastolic 74–96; PULSE 72–90; RESP 16–20; TEMP 97.4–98.1; O2SAT 94–100
[2024-10-31] MEDS: HEPARIN SODIUM,PORCINE 5,000 UNITS/ML VIAL SQ SCH (00:44)
[2024-10-31] MEDS: ISOSORBIDE DINITRATE 20 MG TABLET PO ONE (00:44)
[2024-10-31] MEDS ORDERED: POTASSIUM CHL 10 MEQ/WATER 50 ML IV PRN (05:00)
[2024-10-31 07:31] LABS: PLATELET COUNT (AUTO) 166 K/uL (150-450); RED BLOOD CELL COUNT(AUTO) 4.90 MIL/uL (4.50-5.90); RED CELL DISTRIBUTION WIDTH 14.5 % (11.5-14.5); WHITE BLOOD COUNT (AUTO) 5.7 K/uL (4.5-11.0)
[2024-10-31] MEDS: ALBUTEROL SULFATE 2.5 MG/0.5 ML NEB SOLUTION NEB SCH (07:42)
[2024-10-31] MEDS: IPRATROPIUM BROMIDE 0.5 MG/2.5 ML NEB SOLUTION NEB SCH (07:42)
[2024-10-31 08:00] LABS: CALCIUM, TOTAL 8.6 mg/dL (8.8-10.5); CREATININE 1.03 mg/dL (0.60-1.30); GLOMERULAR FILTR. RATE CALC > 60 mL/min (>60); GLUCOSE,RANDOM 141 mg/dL (70-110); SODIUM SERUM 140 mmol/L (136-145); UREA NITROGEN, BLOOD 12 mg/dL (7-18)
[2024-10-31] MEDS: ISOSORBIDE DINITRATE 20 MG TABLET PO SCH (08:03)
[2024-10-31] MEDS: POTASSIUM CHLORIDE 20 MEQ ER TABLET PO PRN (08:27)
[2024-10-31 17:43] LABS: PH,URINE DRUG SCREEN 6.0 (5.0-8.0)
[2024-10-31 18:03] LABS: ALCOHOL, URINE DRUG SCREEN NEGATIVE (NEGATIVE); AMPHET/METH SCREEN,URINE NEGATIVE (NEGATIVE); BARBITURATE SCREEN, URINE NEGATIVE (NEGATIVE); CANNABINOID SCREEN,URINE NEGATIVE (NEGATIVE); COCAINE SCREEN,URINE NEGATIVE (NEGATIVE); METHADONE SCREEN, URINE NEGATIVE (NEGATIVE)
[2024-10-31] MEDS: MELATONIN 3 MG TABLET PO PRN (21:13)
[2024-11-01 03:23] VITALS: BP 146/74; PULSE 71; RESP 18; TEMP 97.7; O2SAT 97
[2024-11-01 04:32] VITALS: PULSE 66; RESP 20; O2SAT 98
[2024-11-01 07:03] LABS: PLATELET COUNT (AUTO) 153 K/uL (150-450); RED BLOOD CELL COUNT(AUTO) 4.68 MIL/uL (4.50-5.90); RED CELL DISTRIBUTION WIDTH 14.6 % (11.5-14.5); WHITE BLOOD COUNT (AUTO) 8.9 K/uL (4.5-11.0)
[2024-11-01 07:51] VITALS: BP 156/77; PULSE 78; RESP 18; TEMP 97.3; O2SAT 98
[2024-11-01 08:01] LABS: CALCIUM, TOTAL 8.4 mg/dL (8.8-10.5); CREATININE 1.01 mg/dL (0.60-1.30); GLOMERULAR FILTR. RATE CALC > 60 mL/min (>60); GLUCOSE,RANDOM 89 mg/dL (70-110); SODIUM SERUM 140 mmol/L (136-145); UREA NITROGEN, BLOOD 12 mg/dL (7-18)
[2024-11-01 08:35] VITALS: PULSE 78; RESP 18; O2SAT 98
[2024-11-01 08:52] VITALS: PULSE 84; RESP 18; O2SAT 100
[2024-11-01] MEDS ORDERED: LISI-893 PO (09:52)
== END 2024-11-01 11:46 | disposition home or self-care (01) | DRG 199 ==
LOC: EMS 17:45 → EDH 20:29 → 5N 10-31 00:11
PROVIDERS: ADMIT Internal Medicine; ATTEND Internal Medicine
DX: I16.1 Hypertensive emergency (principal); J44.1 Chronic obstructive pulmonary disease with (acute) exacerbation; I50.9 Heart failure, unspecified; E66.01 Morbid (severe) obesity due to excess calories; E87.6 Hypokalemia; E78.00 Pure hypercholesterolemia, unspecified; I11.0 Hypertensive heart disease with heart failure; Z82.5 Family history of asthma and other chronic lower respiratory diseases; F41.9 Anxiety disorder, unspecified; Z68.41 Body mass index [BMI] 40.0-44.9, adult
CPT/HCPCS: 71045; 80048; 80307; 82550; 83735; 83880; 84132; 84484; 85025; 85610; 85730; 87804; 93005; 93306; 94060; 94640; 99285; G0378; J0360; J1644; 36415-L1; 36415-TC; J7613